=== PATIENT | male | born 1940 | race Caucasian/White ===

== ENCOUNTER 2020-09-28 05:04 | Inpatient (IN) ==
[2020-09-28] MEDS ORDERED: Isovue-370 500 ML BOTTLE IVP ONE (05:31)
[2020-09-28 06:02] LABS: Basophils % 0.2 %; Hematocrit 49.5 % (37.5-50.1); Immature Granulocytes % 0.6 % (0-4); Lymphocytes # 0.7 K/mcL (0.6-4.6); Lymphocytes % 3.3 %; Mean Corpuscular HGB Conc 33.9 g/dL (31.6-35.5); Mean Corpuscular Hemoglobin 29.2 pg (28.0-33.3); Mean Corpuscular Volume 86.1 fL (83.0-100.0); Mean Platelet Volume 10.5 fL (9.4-12.4); Monocytes # 1.7 K/mcL (0.0-1.3); Monocytes % 7.7 %; Platelet Count 260 K/mcL (140-400); Red Blood Count 5.75 M/mcL (4.19-5.50); Red Cell Distribution Width 12.8 % (11.5-14.5); Segmented Neutrophils % 88.2 %
[2020-09-28 06:05] LABS: Hemoglobin 16.8 g/dL (12.9-16.9); White Blood Count 21.5 K/mcL (4.3-11.1)
[2020-09-28 06:11] LABS: INR 1.2
[2020-09-28 06:18] LABS: Alanine Aminotransferase 13 Units/L (7-52); Albumin 4.1 g/dL (3.5-5.7); Albumin/Globulin Ratio 1.1 (1.1-2.2); Alkaline Phosphatase 70 Units/L (34-104); Aspartate Amino Transferase 15 Units/L (13-39); BUN/Creatinine Ratio 34 (6-26); Bilirubin,Direct 0.2 mg/dL (0.0-0.2); Bilirubin,Indirect 0.6 mg/dL (0.0-1.0); Bilirubin,Total 0.8 mg/dL (0.3-1.0); Blood Urea Nitrogen 38 mg/dL (8-23); Calcium 9.8 mg/dL (8.6-10.3); Carbon Dioxide 27 mEq/L (23-29); Chloride 99 mEq/L (98-107); Globulin 3.8 g/dL (2.4-3.5); Glucose 413 mg/dL (70-105); Lipase 23 Units/L (11-82); Osmolality,Calculated 315 (280-300); Potassium 3.2 mEq/L (3.5-5.1); Sodium 139 mEq/L (136-145); Total Protein 7.9 g/dL (6.4-8.9); eGFR For African Americans > 60 (> 60); eGFR For Non-African Americans > 60 (> 60)
[2020-09-28 06:40] LABS: Bilirubin,Urine Negative (Negative); Blood,Urine Moderate (Negative); Clarity,Urine Clear (Clear); Color,Urine Light-Yellow (Yellow); Glucose,Urine (UA) >=1000 mg/dL (Normal); Ketones,Urine Negative (Negative); Leukocyte Esterase,Urine Negative (Negative); Mucus,Urine Few per lpf (None-Few); Nitrite,Urine Negative (Negative); Protein,Urine 200 mg/dL (Neg-Trace); RBC,Urine 30-50 per hpf (0-3); Specific Gravity,Urine > 1.030 (1.010-1.025); Urobilinogen,Urine Normal (Normal)
[2020-09-28] MEDS ORDERED: Piperacillin/Tazobactam 3.375 GM in 0.9 % Sodium Chloride Mini Bag 100 ML IVPB ONE (07:49)
[2020-09-28] MEDS ORDERED: 0.9 % Sodium Chloride 1,000 ML IVC ONE (07:51)
[2020-09-28] MEDS ORDERED: *HR* Propofol 200 MG/20 ML VIAL IVP ONE (09:06)
[2020-09-28] MEDS ORDERED: *HR* FentaNYL (PF) 100 MCG/2 ML VIAL ONE (09:06)
[2020-09-28] MEDS ORDERED: Lidocaine -MPF 2% 2 ML VIAL ONE ×2 (09:06→11:28)
[2020-09-28] MEDS ORDERED: *HR* Rocuronium Bromide 50 MG/5 ML VIAL ONE (09:06)
[2020-09-28] MEDS ORDERED: *HR* Succinylcholine 200 MG/10 ML VIAL IVP ONE (09:06)
[2020-09-28] MEDS ORDERED: Ondansetron 4 MG/2 ML VIAL ONE (09:06)
[2020-09-28] MEDS ORDERED: Lidocaine -MPF 4% 5 ML AMPUL ONE (09:06)
[2020-09-28] MEDS ORDERED: Insulin Human Regular 10 UNIT in 0.9 % Sodium Chloride 10 ML IV ONE (09:26)
[2020-09-28] MEDS ORDERED: Albumin Human 5% 25.0 GM/500 ML IV.SOLN ONE (09:55)
[2020-09-28] MEDS ORDERED: D5% in Water 1,000 ML IVC PRN ×2 (10:02→15:07)
[2020-09-28] MEDS ORDERED: Naloxone 0.4 MG/ML INJ IVP PRN ×3 (10:02→15:07)
[2020-09-28] MEDS ORDERED: *HR* Dextrose 50 % in Water (Vial) 50 ML VIAL IVP PRN ×2 (10:02→15:07)
[2020-09-28] MEDS ORDERED: Dextrose Gel 15 GM/37.5 ML TUBE PO PRN ×3 (10:02→15:07)
[2020-09-28] MEDS ORDERED: Ondansetron 4 MG/2 ML VIAL IVP PRN ×3 (10:02→15:07)
[2020-09-28] MEDS ORDERED: *HR* HYDROmorphone (PF) 1 MG/ML SYRINGE IVP PRN (10:10)
[2020-09-28] MEDS ORDERED: 0.9 % Sodium Chloride w KCl 20 MEQ/1,000 ML MLS IVC SCH (10:15)
[2020-09-28] MEDS ORDERED: *HR* HYDROmorphone PF 0.5 MG/0.5 ML SYRINGE IVP PRN (10:28)
[2020-09-28] MEDS ORDERED: *HR* OxyCODONE Immed Rel 5 MG TABLET PO PRN (10:28)
[2020-09-28] MEDS ORDERED: Promethazine 6.25 MG in Water for inj. (sterile) 20 ML IVPB PRN (10:28)
[2020-09-28] MEDS ORDERED: Acetaminophen IV 1,000 MG/100 ML BAG IVPB ONE (11:14)
[2020-09-28] MEDS ORDERED: Heparin 1,000 UNITS/500 mL 500 ML ONE (11:26)
[2020-09-28] MEDS ORDERED: *HR* Magnesium Sulfate 1 GM/2 ML VIAL ONE (11:40)
[2020-09-28] MEDS ORDERED: Insulin LISPRO 300 UNITS/3 ML VIAL SUBQ SCH (12:00)
[2020-09-28] MEDS ORDERED: EPINEPHrine 1 MG/ML VIAL ONE (12:11)
[2020-09-28 12:16] LABS: ABG Base Excess 5 mEq/L (-2 to 3); ABG Chloride 99 mEq/L (98-107); ABG Glucose 206 mg/dL (60-95); ABG HCO3 28 mEq/L (21-27); ABG Ionized Calcium 1.11 mmol/L (1.15-1.35); ABG Oxygen Saturation 100 % (95-98); ABG PCO2 38 mmHg (35-45); ABG PH 7.48 pH Units (7.32-7.45); ABG PO2 267 mmHg (85-104); ABG TCO2 29 mEq/L (20-26)
[2020-09-28] MEDS ORDERED: POTASSIUM CHLORIDE IN 0.9%NACL 40 MEQ/1,000 ML IV.SOLN IV ONE ×2 (12:19→15:07)
[2020-09-28] MEDS ORDERED: Sugammadex Sodium 200 MG/2 ML VIAL IV ONE (13:11)
[2020-09-28] MEDS ORDERED: Perflutren Lipid Microsphere 1.3 ML in 0.9 % Sodium Chloride 8.7 ML IVP PRN ×2 (13:50→15:43)
[2020-09-28] MEDS ORDERED: Piperacillin/Tazobactam 3.375 GM in 0.9 % Sodium Chloride Mini Bag 100 ML IVPB SCH (14:00)
[2020-09-28] MEDS: 0.9 % Sodium Chloride w KCl 20 MEQ/1,000 ML MLS IVC SCH (15:36)
[2020-09-28] MEDS ORDERED: *HR* Heparin 5,000 UNIT/ML VIAL SQ SCH (18:00)
[2020-09-28] MEDS: Acetaminophen IV 1,000 MG/100 ML BAG IVPB SCH ×2 (18:43→22:51)
[2020-09-28] MEDS: Insulin LISPRO 300 UNITS/3 ML VIAL SUBQ SCH ×2 (18:44→23:33)
[2020-09-28] MEDS: *HR* Heparin 5,000 UNIT/ML VIAL SQ SCH (18:44)
[2020-09-28] MEDS: Piperacillin/Tazobactam 3.375 GM in 0.9 % Sodium Chloride Mini Bag 100 ML IVPB SCH (22:52)
[2020-09-29] MEDS: 0.9 % Sodium Chloride w KCl 20 MEQ/1,000 ML MLS IVC SCH ×3 (01:30→21:13)
[2020-09-29] MEDS: *HR* Heparin 5,000 UNIT/ML VIAL SQ SCH ×2 (05:35→18:19)
[2020-09-29] MEDS: Acetaminophen IV 1,000 MG/100 ML BAG IVPB SCH ×4 (05:35→22:50)
[2020-09-29] MEDS: Insulin LISPRO 300 UNITS/3 ML VIAL SUBQ SCH ×4 (05:36→23:59)
[2020-09-29] MEDS: Piperacillin/Tazobactam 3.375 GM in 0.9 % Sodium Chloride Mini Bag 100 ML IVPB SCH ×3 (05:36→22:50)
[2020-09-29 06:02] LABS: Hematocrit 46.4 % (37.5-50.1); Hemoglobin 15.5 g/dL (12.9-16.9); Mean Corpuscular HGB Conc 33.4 g/dL (31.6-35.5); Mean Corpuscular Volume 89.7 fL (83.0-100.0); Mean Platelet Volume 10.7 fL (9.4-12.4); Platelet Count 183 K/mcL (140-400); Red Blood Count 5.17 M/mcL (4.19-5.50)
[2020-09-29 06:11] LABS: White Blood Count 8.3 K/mcL (4.3-11.1)
[2020-09-29 06:36] LABS: BUN/Creatinine Ratio 34 (6-26); Blood Urea Nitrogen 41 mg/dL (8-23); Calcium 9.2 mg/dL (8.6-10.3); Carbon Dioxide 31 mEq/L (23-29); Chloride 104 mEq/L (98-107); Glucose 148 mg/dL (70-105); Magnesium 2.2 mg/dL (1.6-2.6); Osmolality,Calculated 309 (280-300); Phosphorous 2.8 mg/dL (2.7-4.5); Potassium 3.5 mEq/L (3.5-5.1); Sodium 143 mEq/L (136-145); eGFR For African Americans > 60 (> 60); eGFR For Non-African Americans 59 (> 60)
[2020-09-29 07:25] LABS: Eosinophils # 0.2 K/mcL (0.0-0.6); Lymphocytes # 1.3 K/mcL (0.6-4.6); Monocytes # 0.5 K/mcL (0.0-1.3); Neutrophils # 6.3 K/mcL (1.6-8.9); Platelet Estimate Normal (Normal)
[2020-09-30 05:38] LABS: Basophils % 0.1 %; Eosinophils % 0.4 %; Hematocrit 43.8 % (37.5-50.1); Immature Granulocytes % 0.2 % (0-4); Lymphocytes % 10.9 %; Mean Corpuscular Hemoglobin 28.9 pg (28.0-33.3); Mean Corpuscular Volume 90.3 fL (83.0-100.0); Mean Platelet Volume 10.8 fL (9.4-12.4); Monocytes # 0.9 K/mcL (0.0-1.3); Monocytes % 9.5 %; Platelet Count 161 K/mcL (140-400); Red Blood Count 4.85 M/mcL (4.19-5.50); Red Cell Distribution Width 13.1 % (11.5-14.5); Segmented Neutrophils % 78.9 %; White Blood Count 9.1 K/mcL (4.3-11.1)
[2020-09-30 05:44] LABS: Neutrophils # 7.2 K/mcL (1.6-8.9)
[2020-09-30 06:00] LABS: BUN/Creatinine Ratio 34 (6-26); Blood Urea Nitrogen 40 mg/dL (8-23); Calcium 8.8 mg/dL (8.6-10.3); Carbon Dioxide 31 mEq/L (23-29); Chloride 109 mEq/L (98-107); Glucose 125 mg/dL (70-105); Magnesium 2.1 mg/dL (1.6-2.6); Osmolality,Calculated 317 (280-300); Potassium 3.5 mEq/L (3.5-5.1); Reactive Lymphocytes Present (Not Present); Sodium 148 mEq/L (136-145); eGFR For African Americans > 60 (> 60); eGFR For Non-African Americans 59 (> 60)
[2020-09-30] MEDS: Insulin LISPRO 300 UNITS/3 ML VIAL SUBQ SCH ×3 (06:00→18:26)
[2020-09-30 06:01] LABS: Platelet Estimate Normal (Normal)
[2020-09-30] MEDS: *HR* Heparin 5,000 UNIT/ML VIAL SQ SCH ×2 (06:06→17:30)
[2020-09-30] MEDS: Acetaminophen IV 1,000 MG/100 ML BAG IVPB SCH ×3 (06:06→17:28)
[2020-09-30] MEDS: Piperacillin/Tazobactam 3.375 GM in 0.9 % Sodium Chloride Mini Bag 100 ML IVPB SCH ×3 (06:06→21:28)
[2020-09-30] MEDS: 0.9 % Sodium Chloride w KCl 20 MEQ/1,000 ML MLS IVC SCH (07:43)
[2020-09-30] MEDS: Ringers Solution, Lactated 1,000 ML IVC SCH ×2 (10:36→21:29)
[2020-09-30] MEDS ORDERED: *HR* Metoprolol 5 MG/5 ML VIAL IVP SCH (12:00)
[2020-09-30] MEDS: *HR* Metoprolol 5 MG/5 ML VIAL IVP SCH (17:30)
[2020-10-01] MEDS: Acetaminophen IV 1,000 MG/100 ML BAG IVPB SCH ×3 (00:03→13:29)
[2020-10-01] MEDS: *HR* Metoprolol 5 MG/5 ML VIAL IVP SCH ×5 (00:05→23:24)
[2020-10-01] MEDS: Insulin LISPRO 300 UNITS/3 ML VIAL SUBQ SCH ×5 (00:06→23:25)
[2020-10-01 04:24] LABS: Basophils % 0.1 %; Eosinophils # 0.1 K/mcL (0.0-0.6); Eosinophils % 0.9 %; Hematocrit 44.5 % (37.5-50.1); Hemoglobin 14.4 g/dL (12.9-16.9); Immature Granulocytes % 0.4 % (0-4); Lymphocytes # 1.2 K/mcL (0.6-4.6); Lymphocytes % 10.8 %; Mean Corpuscular HGB Conc 32.4 g/dL (31.6-35.5); Mean Corpuscular Hemoglobin 29.7 pg (28.0-33.3); Mean Corpuscular Volume 91.8 fL (83.0-100.0); Mean Platelet Volume 10.4 fL (9.4-12.4); Monocytes # 0.7 K/mcL (0.0-1.3); Monocytes % 6.7 %; Neutrophils # 8.7 K/mcL (1.6-8.9); Platelet Count 169 K/mcL (140-400); Red Blood Count 4.85 M/mcL (4.19-5.50); Red Cell Distribution Width 13.1 % (11.5-14.5); Segmented Neutrophils % 81.1 %; White Blood Count 10.7 K/mcL (4.3-11.1)
[2020-10-01 04:44] LABS: BUN/Creatinine Ratio 32 (6-26); Blood Urea Nitrogen 35 mg/dL (8-23); Calcium 8.5 mg/dL (8.6-10.3); Carbon Dioxide 28 mEq/L (23-29); Chloride 110 mEq/L (98-107); Glucose 179 mg/dL (70-105); Magnesium 2.1 mg/dL (1.6-2.6); Osmolality,Calculated 318 (280-300); Potassium 3.6 mEq/L (3.5-5.1); Sodium 148 mEq/L (136-145); eGFR For African Americans > 60 (> 60); eGFR For Non-African Americans > 60 (> 60)
[2020-10-01] MEDS: Piperacillin/Tazobactam 3.375 GM in 0.9 % Sodium Chloride Mini Bag 100 ML IVPB SCH ×3 (06:29→20:52)
[2020-10-01] MEDS: *HR* Heparin 5,000 UNIT/ML VIAL SQ SCH ×2 (11:06→18:29)
[2020-10-01] MEDS: Ringers Solution, Lactated 1,000 ML IVC SCH ×2 (11:18→18:33)
[2020-10-01] MEDS ORDERED: Acetaminophen 325 MG TABLET PO PRN (12:58)
[2020-10-02 04:48] LABS: BUN/Creatinine Ratio 29 (6-26); Blood Urea Nitrogen 29 mg/dL (8-23); Calcium 8.5 mg/dL (8.6-10.3); Carbon Dioxide 29 mEq/L (23-29); Chloride 106 mEq/L (98-107); Glucose 303 mg/dL (70-105); Osmolality,Calculated 313 (280-300); Potassium 3.3 mEq/L (3.5-5.1); Sodium 143 mEq/L (136-145); eGFR For African Americans > 60 (> 60); eGFR For Non-African Americans > 60 (> 60)
[2020-10-02] MEDS: *HR* Heparin 5,000 UNIT/ML VIAL SQ SCH ×2 (06:03→17:50)
[2020-10-02] MEDS: *HR* Metoprolol 5 MG/5 ML VIAL IVP SCH ×3 (06:03→23:42)
[2020-10-02] MEDS: Piperacillin/Tazobactam 3.375 GM in 0.9 % Sodium Chloride Mini Bag 100 ML IVPB SCH ×3 (06:03→21:17)
[2020-10-02] MEDS: Insulin LISPRO 300 UNITS/3 ML VIAL SUBQ SCH ×5 (06:05→23:42)
[2020-10-02] MEDS ORDERED: Potassium Chloride 40 MEQ, Lidocaine 1% 2 ML in 0.9 % Sodium Chloride 500 ML IVPB ONE (08:10)
[2020-10-02] MEDS ORDERED: Finasteride 5 MG TABLET PO SCH (09:00)
[2020-10-02] MEDS ORDERED: amLODIPine 5 MG TABLET PO SCH (09:00)
[2020-10-02] MEDS ORDERED: Isovue-370 500 ML BOTTLE IVP ONE (10:10)
[2020-10-02] MEDS ORDERED: D10% in Water 500 ML IVC PRN (13:48)
[2020-10-02 14:15] LABS: Phosphorous 2.3 mg/dL (2.7-4.5); Triglycerides 130 mg/dL (< 150)
[2020-10-02] MEDS ORDERED: Lidocaine -MPF 1% 5 ML AMPUL INFILT ONE (15:19)
[2020-10-02] MEDS ORDERED: Clinimix E 5%-15% SOLUTION 2,000 ML IVC SCH (17:00)
[2020-10-02] MEDS ORDERED: Insulin DETEMIR 100 UNIT/ML X5UNITS SUBQ SCH (21:00)
[2020-10-02] MEDS ORDERED: Acetaminophen IV 1,000 MG/100 ML BAG IVPB ONE (23:18)
[2020-10-03] MEDS: Insulin LISPRO 300 UNITS/3 ML VIAL SUBQ SCH ×6 (04:34→21:08)
[2020-10-03] MEDS: *HR* Heparin 5,000 UNIT/ML VIAL SQ SCH ×2 (05:16→17:19)
[2020-10-03] MEDS: Piperacillin/Tazobactam 3.375 GM in 0.9 % Sodium Chloride Mini Bag 100 ML IVPB SCH ×3 (05:17→21:07)
[2020-10-03] MEDS: *HR* Metoprolol 5 MG/5 ML VIAL IVP SCH ×3 (05:17→17:20)
[2020-10-03 05:20] LABS: Basophils % 0.2 %; Eosinophils # 0.5 K/mcL (0.0-0.6); Eosinophils % 4.8 %; Hematocrit 44.3 % (37.5-50.1); Hemoglobin 14.2 g/dL (12.9-16.9); Immature Granulocytes % 0.6 % (0-4); Lymphocytes # 1.2 K/mcL (0.6-4.6); Lymphocytes % 12.7 %; Mean Corpuscular HGB Conc 32.1 g/dL (31.6-35.5); Mean Corpuscular Volume 93.5 fL (83.0-100.0); Monocytes # 0.8 K/mcL (0.0-1.3); Monocytes % 8.2 %; Neutrophils # 6.9 K/mcL (1.6-8.9); Platelet Count 190 K/mcL (140-400); Red Blood Count 4.74 M/mcL (4.19-5.50); Red Cell Distribution Width 13.1 % (11.5-14.5); Segmented Neutrophils % 73.5 %; White Blood Count 9.4 K/mcL (4.3-11.1)
[2020-10-03 05:50] LABS: BUN/Creatinine Ratio 28 (6-26); Blood Urea Nitrogen 31 mg/dL (8-23); Calcium 8.4 mg/dL (8.6-10.3); Carbon Dioxide 29 mEq/L (23-29); Chloride 111 mEq/L (98-107); Glucose 267 mg/dL (70-105); Osmolality,Calculated 320 (280-300); Potassium 3.7 mEq/L (3.5-5.1); Sodium 147 mEq/L (136-145); eGFR For African Americans > 60 (> 60); eGFR For Non-African Americans > 60 (> 60)
[2020-10-03 05:51] LABS: Magnesium 2.1 mg/dL (1.6-2.6)
[2020-10-03] MEDS: Pantoprazole 40 MG VIAL IVP SCH (10:14)
[2020-10-03] MEDS ORDERED: Clinimix E 5%-15% SOLUTION 2,000 ML with MVI, adult with vitamin K 10 ML IVC SCH (17:00)
[2020-10-03] MEDS ORDERED: Acetaminophen IV 1,000 MG/100 ML BAG IVPB PRN (17:02)
[2020-10-03] MEDS ORDERED: Insulin DETEMIR 100 UNIT/ML X5UNITS SUBQ SCH (21:00)
[2020-10-04] MEDS: *HR* Metoprolol 5 MG/5 ML VIAL IVP SCH ×4 (00:01→17:33)
[2020-10-04] MEDS: Insulin LISPRO 300 UNITS/3 ML VIAL SUBQ SCH ×5 (03:39→20:09)
[2020-10-04 04:08] LABS: BUN/Creatinine Ratio 28 (6-26); Blood Urea Nitrogen 30 mg/dL (8-23); Calcium 8.5 mg/dL (8.6-10.3); Carbon Dioxide 28 mEq/L (23-29); Chloride 111 mEq/L (98-107); Glucose 337 mg/dL (70-105); Magnesium 1.8 mg/dL (1.6-2.6); Osmolality,Calculated 321 (280-300); Phosphorous 3.4 mg/dL (2.7-4.5); Sodium 146 mEq/L (136-145); eGFR For African Americans > 60 (> 60); eGFR For Non-African Americans > 60 (> 60)
[2020-10-04] MEDS: Piperacillin/Tazobactam 3.375 GM in 0.9 % Sodium Chloride Mini Bag 100 ML IVPB SCH ×3 (05:45→22:04)
[2020-10-04] MEDS: *HR* Heparin 5,000 UNIT/ML VIAL SQ SCH ×2 (05:46→17:32)
[2020-10-04] MEDS ORDERED: Insulin LISPRO 300 UNITS/3 ML VIAL SUBQ SCH (08:15)
[2020-10-04] MEDS: Metoclopramide 20 MG in 0.9 % Sodium Chloride 50 ML IVPB SCH ×2 (08:54→17:18)
[2020-10-04] MEDS: Pantoprazole 40 MG VIAL IVP SCH (08:55)
[2020-10-04] MEDS: Insulin DETEMIR 100 UNIT/ML X5UNITS SUBQ SCH ×2 (12:02→21:55)
[2020-10-04] MEDS ORDERED: Clinimix E 5%-15% SOLUTION 2,000 ML IVC SCH (17:00)
[2020-10-05] MEDS: Insulin LISPRO 300 UNITS/3 ML VIAL SUBQ SCH ×6 (00:19→20:33)
[2020-10-05] MEDS: *HR* Metoprolol 5 MG/5 ML VIAL IVP SCH ×4 (00:22→18:04)
[2020-10-05] MEDS: Metoclopramide 20 MG in 0.9 % Sodium Chloride 50 ML IVPB SCH ×2 (02:56→08:25)
[2020-10-05 03:28] LABS: BUN/Creatinine Ratio 32 (6-26); Basophils % 0.4 %; Blood Urea Nitrogen 32 mg/dL (8-23); Calcium 8.5 mg/dL (8.6-10.3); Carbon Dioxide 30 mEq/L (23-29); Chloride 111 mEq/L (98-107); Eosinophils # 0.6 K/mcL (0.0-0.6); Eosinophils % 6.3 %; Glucose 241 mg/dL (70-105); Hematocrit 42.5 % (37.5-50.1); Hemoglobin 13.6 g/dL (12.9-16.9); Immature Granulocytes % 1.1 % (0-4); Lymphocytes # 1.6 K/mcL (0.6-4.6); Lymphocytes % 17.8 %; Magnesium 2.1 mg/dL (1.6-2.6); Mean Corpuscular Hemoglobin 29.2 pg (28.0-33.3); Mean Corpuscular Volume 91.4 fL (83.0-100.0); Monocytes # 0.8 K/mcL (0.0-1.3); Monocytes % 9.1 %; Osmolality,Calculated 317 (280-300); Phosphorous 3.2 mg/dL (2.7-4.5); Platelet Count 199 K/mcL (140-400); Potassium 3.7 mEq/L (3.5-5.1); Red Blood Count 4.65 M/mcL (4.19-5.50); Segmented Neutrophils % 65.3 %; Sodium 146 mEq/L (136-145); White Blood Count 9.1 K/mcL (4.3-11.1); eGFR For African Americans > 60 (> 60); eGFR For Non-African Americans > 60 (> 60)
[2020-10-05] MEDS: Piperacillin/Tazobactam 3.375 GM in 0.9 % Sodium Chloride Mini Bag 100 ML IVPB SCH ×2 (06:21→13:35)
[2020-10-05] MEDS: *HR* Heparin 5,000 UNIT/ML VIAL SQ SCH ×2 (06:21→18:04)
[2020-10-05] MEDS: Pantoprazole 40 MG VIAL IVP SCH (08:12)
[2020-10-05] MEDS: Insulin DETEMIR 100 UNIT/ML X5UNITS SUBQ SCH ×2 (08:26→20:33)
[2020-10-05] MEDS ORDERED: Isovue-370 500 ML BOTTLE PO ONE (13:16)
[2020-10-05] MEDS ORDERED: Clinimix E 5%-15% SOLUTION 2,000 ML with MVI, adult with vitamin K 10 ML IVC SCH (17:00)
[2020-10-06] MEDS: Insulin LISPRO 300 UNITS/3 ML VIAL SUBQ SCH ×6 (01:20→20:54)
[2020-10-06] MEDS: *HR* Metoprolol 5 MG/5 ML VIAL IVP SCH ×4 (01:26→17:37)
[2020-10-06] MEDS: Piperacillin/Tazobactam 3.375 GM in 0.9 % Sodium Chloride Mini Bag 100 ML IVPB SCH ×3 (01:26→17:38)
[2020-10-06 06:14] LABS: BUN/Creatinine Ratio 31 (6-26); Blood Urea Nitrogen 28 mg/dL (8-23); Calcium 8.1 mg/dL (8.6-10.3); Carbon Dioxide 27 mEq/L (23-29); Chloride 108 mEq/L (98-107); Glucose 343 mg/dL (70-105); Magnesium 1.9 mg/dL (1.6-2.6); Osmolality,Calculated 311 (280-300); Phosphorous 2.5 mg/dL (2.7-4.5); Potassium 3.6 mEq/L (3.5-5.1); Sodium 141 mEq/L (136-145); eGFR For African Americans > 60 (> 60); eGFR For Non-African Americans > 60 (> 60)
[2020-10-06] MEDS: *HR* Heparin 5,000 UNIT/ML VIAL SQ SCH ×2 (06:41→17:37)
[2020-10-06] MEDS: Insulin DETEMIR 100 UNIT/ML X5UNITS SUBQ SCH ×2 (09:07→20:55)
[2020-10-06] MEDS: Pantoprazole 40 MG VIAL IVP SCH (09:09)
[2020-10-06] MEDS ORDERED: Bisacodyl 10 MG RECTAL SUPPOSITORY RC ONE (10:03)
[2020-10-06] MEDS ORDERED: Clinimix E 5%-15% SOLUTION 2,000 ML IVC SCH (17:00)
[2020-10-07] MEDS: Insulin LISPRO 300 UNITS/3 ML VIAL SUBQ SCH ×6 (00:55→21:32)
[2020-10-07] MEDS: *HR* Metoprolol 5 MG/5 ML VIAL IVP SCH ×4 (00:55→17:41)
[2020-10-07] MEDS: Piperacillin/Tazobactam 3.375 GM in 0.9 % Sodium Chloride Mini Bag 100 ML IVPB SCH ×3 (01:54→17:41)
[2020-10-07] MEDS: *HR* Heparin 5,000 UNIT/ML VIAL SQ SCH ×2 (05:13→17:41)
[2020-10-07 05:42] LABS: Basophils % 0.3 %; Eosinophils # 0.3 K/mcL (0.0-0.6); Eosinophils % 2.3 %; Hematocrit 38.7 % (37.5-50.1); Hemoglobin 12.8 g/dL (12.9-16.9); Lymphocytes # 1.3 K/mcL (0.6-4.6); Lymphocytes % 11.6 %; Mean Corpuscular HGB Conc 33.1 g/dL (31.6-35.5); Mean Corpuscular Hemoglobin 29.3 pg (28.0-33.3); Mean Corpuscular Volume 88.6 fL (83.0-100.0); Monocytes # 0.8 K/mcL (0.0-1.3); Monocytes % 7.1 %; Neutrophils # 8.8 K/mcL (1.6-8.9); Platelet Count 200 K/mcL (140-400); Red Blood Count 4.37 M/mcL (4.19-5.50); Red Cell Distribution Width 12.7 % (11.5-14.5); Segmented Neutrophils % 77.7 %; White Blood Count 11.4 K/mcL (4.3-11.1)
[2020-10-07 09:04] LABS: BUN/Creatinine Ratio 31 (6-26); Blood Urea Nitrogen 27 mg/dL (8-23); Calcium 8.2 mg/dL (8.6-10.3); Carbon Dioxide 26 mEq/L (23-29); Chloride 103 mEq/L (98-107); Glucose 714 mg/dL (70-105); Magnesium 2.2 mg/dL (1.6-2.6); Osmolality,Calculated 315 (280-300); Phosphorous 4.9 mg/dL (2.7-4.5); Potassium 4.8 mEq/L (3.5-5.1); Sodium 133 mEq/L (136-145); eGFR For African Americans > 60 (> 60); eGFR For Non-African Americans > 60 (> 60)
[2020-10-07] MEDS: Pantoprazole 40 MG VIAL IVP SCH (09:43)
[2020-10-07] MEDS: Insulin DETEMIR 100 UNIT/ML X5UNITS SUBQ SCH ×2 (09:44→21:33)
[2020-10-07] MEDS ORDERED: Clinimix E 5%-15% SOLUTION 2,000 ML IVC SCH (17:00)
[2020-10-08] MEDS: *HR* Metoprolol 5 MG/5 ML VIAL IVP SCH ×4 (00:32→17:02)
[2020-10-08] MEDS: Insulin LISPRO 300 UNITS/3 ML VIAL SUBQ SCH ×6 (00:33→21:51)
[2020-10-08] MEDS: Piperacillin/Tazobactam 3.375 GM in 0.9 % Sodium Chloride Mini Bag 100 ML IVPB SCH ×4 (01:49→17:03)
[2020-10-08] MEDS: *HR* Heparin 5,000 UNIT/ML VIAL SQ SCH ×2 (05:22→17:11)
[2020-10-08] MEDS: Pantoprazole 40 MG VIAL IVP SCH (08:58)
[2020-10-08] MEDS: Insulin DETEMIR 100 UNIT/ML X5UNITS SUBQ SCH ×2 (10:51→21:52)
[2020-10-08] MEDS: Metoclopramide 10 MG/2 ML VIAL IVP SCH ×2 (12:59→17:10)
[2020-10-08 13:06] LABS: BUN/Creatinine Ratio 32 (6-26); Blood Urea Nitrogen 26 mg/dL (8-23); Carbon Dioxide 26 mEq/L (23-29); Chloride 106 mEq/L (98-107); Glucose 210 mg/dL (70-105); Magnesium 2.1 mg/dL (1.6-2.6); Osmolality,Calculated 297 (280-300); Phosphorous 2.3 mg/dL (2.7-4.5); Potassium 3.7 mEq/L (3.5-5.1); Sodium 138 mEq/L (136-145); eGFR For African Americans > 60 (> 60); eGFR For Non-African Americans > 60 (> 60)
[2020-10-08] MEDS ORDERED: Clinimix E 5%-15% SOLUTION 2,000 ML with MVI, adult with vitamin K 10 ML IVC SCH (17:00)
[2020-10-09] MEDS: Insulin LISPRO 300 UNITS/3 ML VIAL SUBQ SCH ×6 (00:24→22:30)
[2020-10-09] MEDS: *HR* Metoprolol 5 MG/5 ML VIAL IVP SCH ×4 (00:25→17:59)
[2020-10-09] MEDS: Metoclopramide 10 MG/2 ML VIAL IVP SCH ×4 (00:26→18:06)
[2020-10-09] MEDS: Piperacillin/Tazobactam 3.375 GM in 0.9 % Sodium Chloride Mini Bag 100 ML IVPB SCH ×2 (02:35→09:47)
[2020-10-09] MEDS: *HR* Heparin 5,000 UNIT/ML VIAL SQ SCH ×2 (06:34→18:13)
[2020-10-09] MEDS: Pantoprazole 40 MG VIAL IVP SCH (09:35)
[2020-10-09] MEDS: Insulin DETEMIR 100 UNIT/ML X5UNITS SUBQ SCH (09:39)
[2020-10-09 09:40] LABS: BUN/Creatinine Ratio 32 (6-26); Blood Urea Nitrogen 24 mg/dL (8-23); Calcium 8.2 mg/dL (8.6-10.3); Carbon Dioxide 24 mEq/L (23-29); Chloride 106 mEq/L (98-107); Glucose 125 mg/dL (70-105); Magnesium 2.1 mg/dL (1.6-2.6); Osmolality,Calculated 292 (280-300); Phosphorous 2.4 mg/dL (2.7-4.5); Potassium 3.8 mEq/L (3.5-5.1); Sodium 138 mEq/L (136-145); eGFR For African Americans > 60 (> 60); eGFR For Non-African Americans > 60 (> 60)
[2020-10-09] MEDS ORDERED: Clinimix E 5%-15% SOLUTION 2,000 ML IVC SCH (11:30)
[2020-10-10] MEDS: *HR* Metoprolol 5 MG/5 ML VIAL IVP SCH ×3 (00:26→11:44)
[2020-10-10] MEDS: Metoclopramide 10 MG/2 ML VIAL IVP SCH ×3 (00:27→11:44)
[2020-10-10] MEDS: Insulin LISPRO 300 UNITS/3 ML VIAL SUBQ SCH ×6 (00:27→20:03)
[2020-10-10] MEDS: Insulin DETEMIR 100 UNIT/ML X5UNITS SUBQ SCH ×2 (00:35→08:05)
[2020-10-10 04:04] LABS: BUN/Creatinine Ratio 34 (6-26); Blood Urea Nitrogen 25 mg/dL (8-23); Calcium 8.2 mg/dL (8.6-10.3); Carbon Dioxide 26 mEq/L (23-29); Chloride 109 mEq/L (98-107); Glucose 245 mg/dL (70-105); Magnesium 1.9 mg/dL (1.6-2.6); Osmolality,Calculated 301 (280-300); Phosphorous 2.2 mg/dL (2.7-4.5); Potassium 3.7 mEq/L (3.5-5.1); Sodium 139 mEq/L (136-145); eGFR For African Americans > 60 (> 60); eGFR For Non-African Americans > 60 (> 60)
[2020-10-10] MEDS: *HR* Heparin 5,000 UNIT/ML VIAL SQ SCH ×2 (05:17→17:00)
[2020-10-10] MEDS: Pantoprazole 40 MG VIAL IVP SCH (08:05)
[2020-10-10] MEDS ORDERED: *HR* Metoprolol 5 MG/5 ML VIAL IVP PRN (13:03)
[2020-10-10] MEDS ORDERED: Acetaminophen 325 MG TABLET PO PRN (14:07)
[2020-10-10] MEDS ORDERED: Metoclopramide 10 MG/2 ML VIAL IVP PRN (14:09)
[2020-10-10] MEDS ORDERED: Insulin DETEMIR 100 UNIT/ML X5UNITS SUBQ SCH (21:00)
[2020-10-10] MEDS: Dextrose Gel 15 GM/37.5 ML TUBE PO PRN (23:48)
[2020-10-11] MEDS: Dextrose Gel 15 GM/37.5 ML TUBE PO PRN (00:27)
[2020-10-11] MEDS: *HR* Heparin 5,000 UNIT/ML VIAL SQ SCH ×2 (05:03→18:01)
[2020-10-11] MEDS: Insulin LISPRO 300 UNITS/3 ML VIAL SUBQ SCH ×4 (09:35→20:12)
[2020-10-11] MEDS: Insulin DETEMIR 100 UNIT/ML X5UNITS SUBQ SCH ×2 (10:01→20:17)
[2020-10-11 12:34] LABS: Basophils # 0.1 K/mcL (0.0-0.2); Basophils % 0.5 %; Eosinophils # 0.2 K/mcL (0.0-0.6); Eosinophils % 2.1 %; Hematocrit 38.5 % (37.5-50.1); Hemoglobin 12.4 g/dL (12.9-16.9); Immature Granulocytes % 0.7 % (0-4); Lymphocytes # 1.1 K/mcL (0.6-4.6); Lymphocytes % 10.5 %; Mean Corpuscular HGB Conc 32.2 g/dL (31.6-35.5); Mean Corpuscular Hemoglobin 29.7 pg (28.0-33.3); Mean Corpuscular Volume 92.1 fL (83.0-100.0); Mean Platelet Volume 10.5 fL (9.4-12.4); Monocytes # 0.8 K/mcL (0.0-1.3); Monocytes % 7.5 %; Neutrophils # 8.3 K/mcL (1.6-8.9); Platelet Count 277 K/mcL (140-400); Red Blood Count 4.18 M/mcL (4.19-5.50); Red Cell Distribution Width 13.4 % (11.5-14.5); Segmented Neutrophils % 78.7 %; White Blood Count 10.5 K/mcL (4.3-11.1)
[2020-10-11 12:50] LABS: BUN/Creatinine Ratio 23 (6-26); Blood Urea Nitrogen 18 mg/dL (8-23); Calcium 8.6 mg/dL (8.6-10.3); Carbon Dioxide 26 mEq/L (23-29); Chloride 106 mEq/L (98-107); Glucose 87 mg/dL (70-105); Osmolality,Calculated 287 (280-300); Phosphorous 2.7 mg/dL (2.7-4.5); Potassium 3.8 mEq/L (3.5-5.1); Sodium 138 mEq/L (136-145); eGFR For African Americans > 60 (> 60); eGFR For Non-African Americans > 60 (> 60)
[2020-10-12] MEDS: *HR* Heparin 5,000 UNIT/ML VIAL SQ SCH ×2 (05:27→16:56)
[2020-10-12] MEDS: Insulin LISPRO 300 UNITS/3 ML VIAL SUBQ SCH ×4 (07:47→21:38)
[2020-10-12] MEDS: amLODIPine 5 MG TABLET PO SCH (07:57)
[2020-10-12] MEDS: Insulin DETEMIR 100 UNIT/ML X5UNITS SUBQ SCH ×2 (07:58→21:35)
[2020-10-12] MEDS ORDERED: polyethylene glycoL 3350 17 GM POWD.PACK PO PRN (14:13)
[2020-10-12] MEDS: Sennosides/Docusate Sodium TABLET PO SCH (20:46)
[2020-10-13] MEDS: *HR* Heparin 5,000 UNIT/ML VIAL SQ SCH ×2 (06:19→16:56)
[2020-10-13] MEDS: Insulin LISPRO 300 UNITS/3 ML VIAL SUBQ SCH ×4 (07:53→21:02)
[2020-10-13] MEDS: Sennosides/Docusate Sodium TABLET PO SCH ×2 (07:53→21:02)
[2020-10-13] MEDS: amLODIPine 5 MG TABLET PO SCH (07:53)
[2020-10-13] MEDS: Insulin DETEMIR 100 UNIT/ML X5UNITS SUBQ SCH ×2 (07:53→21:02)
[2020-10-14] MEDS: *HR* Heparin 5,000 UNIT/ML VIAL SQ SCH ×2 (05:43→16:47)
[2020-10-14] MEDS: Insulin LISPRO 300 UNITS/3 ML VIAL SUBQ SCH ×4 (08:42→20:51)
[2020-10-14] MEDS: Sennosides/Docusate Sodium TABLET PO SCH ×2 (10:00→21:02)
[2020-10-14] MEDS: amLODIPine 5 MG TABLET PO SCH (10:00)
[2020-10-14] MEDS: polyethylene glycoL 3350 17 GM POWD.PACK PO SCH (10:00)
[2020-10-14] MEDS: Insulin DETEMIR 100 UNIT/ML X5UNITS SUBQ SCH ×2 (10:00→21:02)
[2020-10-15] MEDS: *HR* Heparin 5,000 UNIT/ML VIAL SQ SCH ×2 (05:39→17:37)
[2020-10-15] MEDS: Sennosides/Docusate Sodium TABLET PO SCH ×2 (08:24→20:53)
[2020-10-15] MEDS: amLODIPine 5 MG TABLET PO SCH (08:24)
[2020-10-15] MEDS: polyethylene glycoL 3350 17 GM POWD.PACK PO SCH (08:24)
[2020-10-15] MEDS: Insulin LISPRO 300 UNITS/3 ML VIAL SUBQ SCH ×4 (08:24→20:54)
[2020-10-15] MEDS: Insulin DETEMIR 100 UNIT/ML X5UNITS SUBQ SCH ×2 (08:24→20:53)
[2020-10-16] MEDS: *HR* Heparin 5,000 UNIT/ML VIAL SQ SCH ×2 (06:01→18:09)
[2020-10-16] MEDS: Sennosides/Docusate Sodium TABLET PO SCH ×2 (10:38→21:45)
[2020-10-16] MEDS: amLODIPine 5 MG TABLET PO SCH (10:39)
[2020-10-16] MEDS: Insulin DETEMIR 100 UNIT/ML X5UNITS SUBQ SCH ×2 (10:39→21:46)
[2020-10-16] MEDS: polyethylene glycoL 3350 17 GM POWD.PACK PO SCH (10:39)
[2020-10-16] MEDS: Insulin LISPRO 300 UNITS/3 ML VIAL SUBQ SCH ×4 (10:40→21:46)
[2020-10-16 11:04] LABS: Basophils % 0.6 %; Eosinophils # 0.1 K/mcL (0.0-0.6); Eosinophils % 1.8 %; Hematocrit 38.9 % (37.5-50.1); Hemoglobin 12.8 g/dL (12.9-16.9); Immature Granulocytes % 0.3 % (0-4); Lymphocytes # 1.3 K/mcL (0.6-4.6); Lymphocytes % 20.4 %; Mean Corpuscular HGB Conc 32.9 g/dL (31.6-35.5); Mean Corpuscular Hemoglobin 30.1 pg (28.0-33.3); Mean Corpuscular Volume 91.5 fL (83.0-100.0); Mean Platelet Volume 10.1 fL (9.4-12.4); Monocytes # 0.5 K/mcL (0.0-1.3); Monocytes % 7.7 %; Neutrophils # 4.5 K/mcL (1.6-8.9); Platelet Count 259 K/mcL (140-400); Red Blood Count 4.25 M/mcL (4.19-5.50); Red Cell Distribution Width 13.4 % (11.5-14.5); Segmented Neutrophils % 69.2 %; White Blood Count 6.5 K/mcL (4.3-11.1)
[2020-10-16 11:25] LABS: BUN/Creatinine Ratio 27 (6-26); Blood Urea Nitrogen 21 mg/dL (8-23); Calcium 8.8 mg/dL (8.6-10.3); Carbon Dioxide 24 mEq/L (23-29); Chloride 103 mEq/L (98-107); Glucose 286 mg/dL (70-105); Magnesium 1.7 mg/dL (1.6-2.6); Osmolality,Calculated 291 (280-300); Phosphorous 2.6 mg/dL (2.7-4.5); Sodium 134 mEq/L (136-145); eGFR For African Americans > 60 (> 60); eGFR For Non-African Americans > 60 (> 60)
[2020-10-17] MEDS: *HR* Heparin 5,000 UNIT/ML VIAL SQ SCH (06:06)
[2020-10-17] MEDS: Insulin LISPRO 300 UNITS/3 ML VIAL SUBQ SCH ×2 (08:25→11:58)
[2020-10-17] MEDS: Insulin DETEMIR 100 UNIT/ML X5UNITS SUBQ SCH (10:12)
[2020-10-17] MEDS: polyethylene glycoL 3350 17 GM POWD.PACK PO SCH (10:13)
[2020-10-17] MEDS: amLODIPine 5 MG TABLET PO SCH (10:13)
[2020-10-17] MEDS: Sennosides/Docusate Sodium TABLET PO SCH (10:13)
[2020-10-17 10:53] VITALS: BP 107/58
[2020-10-17 12:35] LABS: Influenza A PCR Negative (Negative); Influenza B PCR Negative (Negative); Resp. Syncytial Virus PCR Negative (Negative)
[2020-10-17 12:41] LABS: SARS-CoV-2 by PCR (In House) Negative (Negative)
== END 2020-10-17 15:11 | disposition critical access hospital (66) | DRG 329 ==
LOC: EMEROOARM 05:04 → 3ANU 11:00 → SUATTDRO 11:49 → 3ANU 11:49
PROVIDERS: ADMIT Internal Medicine; ATTEND Internal Medicine